=== PATIENT | female | born 2000 | race Caucasian/White ===

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

== ENCOUNTER → 2018-07-10 | Outpatient (CLI) | payer MEDICAID, OTHER | LOC: BMCIMAGING 11:22 | PROVIDERS: ATTEND Family Medicine | DX: M84.872 Other disorders of continuity of bone, left ankle and foot (principal) ==